=== PATIENT | female | born 1930 | race African-American/Black ===

== ENCOUNTER 2018-08-29 15:23 | Inpatient (IN) | payer MEDICARE, BC ==
[2018-08-29 16:07] LABS: Hemoglobin 9.3 g/dL (12.0-16.0); Mean Corpuscular HGB CONC 31.7 g/dL (32.0-36.0); Mean Corpuscular Volume 82.1 fL (78.0-98.0); Mean Platelet Volume 9.7 fL (7.4-10.4); Platelet Count 239 thou/uL (130-400); RBC Distribution Width 16.4 % (11.5-14.5); Red Blood Cell (RBC) Count 3.56 mill/uL (4.20-5.40); White Blood Cell (WBC) Count 10.1 thou/uL (4.8-10.8)
--- NOTE | 2018-08-29 16:13 | RAD ---
FRONTAL VIEW CHEST: Date: 08/29/18 INDICATION: Chest pain. COMPARISON: 12/02/14. FINDINGS: Cardiac silhouette is prominent, stable. No lobar consolidation, effusion, or discrete pneumothorax. IMPRESSION: 1. No focal consolidation. 2. Stable prominence of cardiac silhouette. POS: TPC
[2018-08-29 16:27] LABS: ALT (SGPT) 52 U/L (8-55); AST (SGOT) 60 U/L (5-34); Albumin 3.8 g/dL (3.4-4.8); Alkaline Phosphatase 112 U/L (40-150); Anion Gap 15 mmol/L (10-20); BUN (Urea Nitrogen) 45 mg/dL (9.8-20.1); Bilirubin, Total 0.2 mg/dL (0.2-1.2); CK (CPK) 1489 U/L (29-168); Calc. Creatinine Clearance 0 mL/min (70-130); Carbon Dioxide 18 mmol/L (23-31); Chloride 107 mmol/L (98-107); Estimated GFR-MDRD 11; Globulin 3.9 g/dL (2.4-3.5); Glucose 99 mg/dL (83-110); Lipase 42 U/L (8-78); Potassium 6.5 mmol/L (3.5-5.1); Protein, Total 7.7 g/dL (6.0-8.3); Sodium 133 mmol/L (136-145)
[2018-08-29 16:36] LABS: Anisocytosis SLIGHT = 6-15 cells (100X) (0-5/hpf); Burr Cells SLIGHT = 2-5 cells (100X) (0-1/hpf); Elliptocytes SLIGHT = 2-5 cells (100X) (0-1/hpf); Eosinophils 2 % (0-10); Hypochromia SLIGHT = 6-15 cells (100X) (0-5/hpf); Lymphocytes 18 % (21-51); MDiff Complete? YES; Monocytes 5 % (0-10); Neutrophil 74 % (42-75); Ovalocytes SLIGHT = 2-5 cells (100X) (0-1/hpf); PLT Morphology Comment Appears Adequate; Poikilocytosis SLIGHT = 6-15 cells (100X) (0-5/hpf); Polychromasia SLIGHT = 2-3 cells (100X) (0-2/hpf); Schistocytes SLIGHT = 2-5 cells (100X) (0-1/hpf); Spherocytes SLIGHT = 1-5 cells (100X) (None Seen)
[2018-08-29] MEDS ORDERED: Insulin Regular 300 UNITS/3 ML VIAL ONE (17:19)
[2018-08-29] MEDS ORDERED: Dextrose 50% Abboject 50 ML SYRINGE ONE (17:19)
[2018-08-29] MEDS ORDERED: Acetaminophen 325 MG TAB PO PRN (18:09)
[2018-08-29] MEDS ORDERED: Senokot S 8.6-50 MG TAB PO PRN (18:09)
[2018-08-29] MEDS ORDERED: Guaifenesin DM 100-10/5 ML UDCUP PO PRN (18:09)
[2018-08-29] MEDS ORDERED: HumaLOG 300 UNITS/3 ML VIAL SC PRN (18:09)
[2018-08-29] MEDS ORDERED: Dextrose 50% Abboject 50 ML SYRINGE SLOW IVP PRN (18:09)
--- NOTE | 2018-08-29 19:52 | HP ---
REASON FOR ADMISSION: Acute kidney injury, hyperkalemia, metabolic acidosis, and 9-pounds weight loss in the last 4 weeks. HISTORY OF PRESENTING ILLNESS: The patient gives history of having loss of appetite from almost a month now. She has been feeling weak. She normally walks with a rolling walker inside the house. She has not been eating or drinking from last 2 days now. The family got concerned and brought her to the emergency room. The patient in fact had seen Dr. Mead in the last 2 to 3 weeks for worsening of her kidney function. Her home health nurse came to check on her yesterday and told her heart rhythm was abnormal and asked them to call Dr. Polanco, who in turn told them to come to the emergency room this morning. She has had a normal colonoscopy done more than 10 years back. No complaints of bleeding per rectum. She has dry cough from her smoking habit. No fever, cough, or expectoration. No complaints of shortness of breath. She lives alone. She has no complaints of bleeding per rectum. No complaints of urinary frequency or urgency. PAST MEDICAL AND SURGICAL HISTORY: History of chronic kidney disease, likely 3, hypertension, diabetes mellitus type 2, dyslipidemia, likely COPD, and hypothyroidism, has had thyroid surgery. CURRENT MEDICATIONS: She takes; 1. Metformin 500 mg p.o. twice daily. 2. Levothyroxine 75 mcg p.o. daily. 3. Ultram p.r.n. for pain. 4. Procardia XL 30 mg p.o. daily. 5. Losartan with hydrochlorothiazide 50/12.5 mg p.o. twice daily. 6. Vitamin D 1000 units p.o. daily. 7. Crestor 40 mg p.o. daily. 8. Omeprazole 20 mg daily. ALLERGIES: NO KNOWN DRUG ALLERGIES. PERSONAL HISTORY: The patient has been a smoker all through her life. She states she has come down to 3 to 4 cigarettes a day. Does not abuse alcohol or drugs. The patient lives by herself and does all her activities of daily living. She ambulates with a rolling walker at home. FAMILY HISTORY: Mother of CVA at the age of 53. Father of massive CVA at the age of 65 years. Code status is full. Power of deputy prosecuting attorney is her 2 daughters, who are at bedside. REVIEW OF SYSTEMS: CONSTITUTIONAL: Negative for weight loss or gain, ability to conduct usual activities. SKIN: Negative for rash, itching. EYES: Negative for double vision, pain. ENT/MOUTH: Negative for nose bleeding, neck stiffness, pain, tenderness. CARDIOVASCULAR: Negative for palpitations, dyspnea on exertion, orthopnea. RESPIRATORY: Negative for shortness of breath, wheezing, cough, hemoptysis, fever or night sweats. GASTROINTESTINAL: Negative for poor appetite, abdominal pain, heartburn, nausea , vomiting, constipation, or diarrhea. GENITOURINARY: Negative for urgency, frequency, dysuria, nocturia. MUSCULOSKELETAL: Negative for pain, swelling. NEUROLOGIC/PSYCHIATRIC: Negative for anxiety, depression. ALLERGY/IMMUNOLOGIC: Negative for skin rash, bleeding tendency. PHYSICAL EXAMINATION: GENERAL: The patient is an 88-year-old female, who is currently not in any acute distress. VITAL SIGNS: Blood pressure 122/56, pulse 68 per minute, respiratory rate 18 per minute, temperature 98 degrees Fahrenheit, and saturating 100% on room air. NECK: There is elevated JVD. HEENT: Eyes, extraocular muscles intact. Pupils are reacting to light. Oral cavity, mucous membranes are moist. No exudates or congestion. CARDIOVASCULAR SYSTEM: S1 and S2 heard. Regular rhythm. murmur+. RESPIRATORY SYSTEM: Air entry 1+ bilateral scattered rhonchi, plus no wheezes or rales. ABDOMEN: Soft. Bowel sounds heard. No tenderness, rigidity, or guarding. EXTREMITIES: Mild peripheral edema. No calf tenderness. VASCULAR SYSTEM: Peripheral pulses 1+ bilateral. No ischemic ulcerations or gangrene. CENTRAL NERVOUS SYSTEM: No gross focal deficits noted. The patient is moving all four extremities. PSYCHIATRIC SYSTEM: The patient's mood is euthymic. No hallucinations or delusions. LABORATORY DATA: EKG done shows sinus rhythm at 69 beats per minute. No signs of LVH. White count of 10, H and H 9 and 29, platelet count 239, MCV is 82, with 74% neutrophils. Potassium 6.5, serum bicarb 18, BUN 45, creatinine 3.9, and sodium 133. AST 60, ALT 52, alkaline phosphatase 112, CK level is 1489. Troponin I 0.02. BNP is 43. Albumin is 3.8, lipase is 42. Chest x-ray done shows no focal consolidation. CLINICAL IMPRESSION AND PLAN: The patient will be admitted to telemetry for acute kidney injury, hyperkalemia, metabolic acidosis, and progressive weakness with loss of appetite and 9 pounds weight loss in the last 4 weeks. The patient will be on D5 water at 100 mL/h. She is getting hyperkalemia cocktail in the ER. She is also getting Kayexalate 1 dose in the ER as well. I have informed Dr. Mead, who will be shortly seeing her. Her metformin, losartan with hydrochlorothiazide will be held for now due to acute kidney injury. She will be on aspirin, D5 water at 100 mL/ h, DuoNeb q.6 hourly p.r.n., Synthroid, Crestor at home dose, small dose of Lopressor at 25 mg twice daily. We will obtain CT chest, abdomen, and pelvis without contrast in way of her heavy smoking habit and progressive weight loss plus the current acute kidney injury. She will be on Accu-Chek with coverage for now. We will obtain renal function panel in the morning. Continue to closely monitor her on telemetry. Job ID: [id number] MTDD
--- NOTE | 2018-08-29 20:01 | ULT ---
ULTRASOUND RETROPERITONEUM COMPLETE: (RENAL) 08/29/18 HISTORY: 88-year-old female with renal failure. FINDINGS: Right kidney is 8.5 x 4.5 x 4 cm. Left kidney is 8.5 x 5.5 x 4.5 cm. There is an approximately 3 x 3 x 2.5 cm cyst at the left renal mid pole spanning the cortex and a portion of the renal sinus. There is no hydronephrosis bilaterally. Urinary bladder volume is approximately 90 mL at the time of this s can. The patient is unable to void. IMPRESSION: 1. No hydronephrosis. 2. Left renal cyst. DIANNA Armstrong POS: ALEX
[2018-08-29] MEDS: Dextrose 5% in Water 1,000 ML IV SCH (20:46)
[2018-08-29] MEDS: Rosuvastatin 20 MG TAB PO SCH (20:53)
[2018-08-29] MEDS: Metoprolol Tartrate 25 MG TAB PO SCH (20:53)
[2018-08-29] MEDS: Terazosin HCl 5 MG CAP PO SCH (20:53)
--- NOTE | 2018-08-29 21:07 | CT ---
CT OF CHEST PERFORMED WITH INTRAVENOUS CONTRAST ENHANCEMENT CT OF ABDOMEN AND PELVIS PERFORMED WITH INTRAVENOUS CONTRAST ENHANCEMENT 08/29/18 HISTORY: Abdominal pain, weight loss. Patient is a heavy smoker, acute renal insufficiency. The lungs show some emphysematous change. There is pleural calcifications within the left chest. Thes e changes are along the left lateral thoracic wall. There is also some pleural based calcifications s een posteriorly within the right lung. The pattern of this is not entirely typical of asbestosis expo sure. There is a right lower lobe noncalcified pulmonary nodule measuring 9 mm in size. It is not as well defined on the coronal imaging. It does warrant followup. It could represent some focus of pneum onitis but should be treated as a possible pulmonary nodule with repeat examination in three months. There is no infiltrative process or pleural effusions identified. There are atherosclerotic changes o f the aorta. There is no significant mediastinal, hilar or axillary adenopathy appreciated on this ex am. CT OF ABDOMEN PERFORMED WITHOUT CONTRAST ENHANCEMENT: The liver and spleen are within normal limits of size. Pancreas and gallbladder regions appear unrema rkable. The right adrenal gland is normal in appearance. There is a predominantly low attenuation lef t adrenal mass. It does have some peripheral calcifications. The central portion of this has CT Houns field unit numbers that are compatible with fat and this probably represents an adenoma. It measures 2.6 cm. right and left kidneys are normal in size. There is some vascular calcifications in the left renal pelvis. The left renal pelvis is also slightly prominent but promptly tapers to a normal calibe r. There is no signs of any obstruction. There is a 2.6 cm hypodense area within the mid pole region of the left kidney most likely a cyst. No significant periaortic or mesenteric adenopathy. There is m arked atherosclerotic changes of the infrarenal aorta and dense calcification at the origin of the ri ght common iliac artery. Also marked calcification within the left common iliac artery. Colonic diverticulosis is noted. This is most pronounced in the sigmoid and descending colon region. No inflammatory process. No significant pelvic lymphadenopathy or mass. Review of osseous structures show arthritic changes of the spine. IMPRESSION: 1. Chronic lung change. 2. Approximately 9 to 10 mm right lower lobe pulmonary nodule. Further work up will be required as discussed above. 3. Pleural based calcifications raising the possibility of asbestosis exposure. Emphysematous heike ng changes are present. 4. Left adrenal nodule, possibly an adenoma. 5. Probable left renal cyst. 6. Colonic diverticulosis. Marked atherosclerotic disease in the infrarenal aorta and origin of both common iliac arteries. POS: ALEX
[2018-08-30 00:08] LABS: ALT (SGPT) 46 U/L (8-55); AST (SGOT) 54 U/L (5-34); Albumin 3.2 g/dL (3.4-4.8); Alkaline Phosphatase 94 U/L (40-150); Anion Gap 15 mmol/L (10-20); BUN (Urea Nitrogen) 40 mg/dL (9.8-20.1); Bilirubin, Total 0.2 mg/dL (0.2-1.2); Calc. Creatinine Clearance 10 mL/min (70-130); Calcium 9.4 mg/dL (7.8-10.44); Carbon Dioxide 17 mmol/L (23-31); Chloride 108 mmol/L (98-107); Estimated GFR-MDRD 14; Globulin 3.3 g/dL (2.4-3.5); Glucose 110 mg/dL (83-110); Protein, Total 6.5 g/dL (6.0-8.3); Sodium 135 mmol/L (136-145)
--- NOTE | 2018-08-30 02:09 | CON ---
DATE OF CONSULTATION: HISTORY OF PRESENT ILLNESS: Ms. Tsai is an 88-year-old black female, who was admitted for palpitations. According to our visiting nurses, she had some palpitations. She was seen today for further evaluation. During the initial evaluation, she was noted to have a worsening renal dysfunction as well as hyperkalemia. Of interest, this patient was [facility], there her creatinine was noted at 2.86. She was instructed to decrease her losartan from one tablet b.i.d. to once a day; however, she did not do this. In addition, she was given nifedipine, but she did not tolerate this medication. For the last two days, according to the patient, she has been having decreased appetite and decreased p.o. intake. She states that the food was tasteless. We are now being consulted for acute kidney injury on top of her chronic renal failure as well as from the hyperkalemia. She was given Kayexalate 30 grams with lactulose, D50 with insulin at the ER for the hyperkalemia. As per report, a 12-lead EKG showed no acute ST-T wave changes or evidence of hyperkalemia or peaked T-waves. REVIEW OF SYSTEMS: Decreased appetite and decreased energy level. No chest pain. No shortness of breath. No nausea. No vomiting. No diarrhea. No constipation. Decreased food taste. No fever or chills. No syncopal episode. No dysuria. No abdominal pain. No chest pain. No diplopia. No sore throat. Occasional joint pains. HOME MEDICATIONS: Included; 1. Omeprazole 20 mg tablet once a day. 2. Rosuvastatin 40 mg tablet at bedtime. 3. Losartan/hydrochlorothiazide - 50/12.5 one tablet b.i.d. 4. Levothyroxine 75 mcg daily. 5. Metformin 500 mg p.o. b.i.d. 6. Tramadol 50 mg p.r.n. 7. Aspirin 325 mg once a day. PAST MEDICAL HISTORY: 1. Chronic renal failure from presumed diabetic nephropathy. 2. Type 2 diabetes mellitus. 3. Hypertension. 4. GERD. 5. DJD. 6. Hyperlipidemia. 7. Hypothyroidism. PAST SURGICAL HISTORY: 1. Status post lung nodule excision - benign. 2. Status post colonoscopy. 3. Status post appendectomy. 4. Status post hysterectomy. SOCIAL HISTORY: The patient lives in [place]. She lives alone. Three children. She is . She still smokes about one pack a day for the last 50 to 60 years. Alcohol, none. No IV drug abuse. No blood transfusion. Sedentary lifestyle. FAMILY HISTORY: No family history of ESRD. ALLERGIES: NONE. IMMUNIZATION: Not up to date. TRAUMA: None. HOSPITALIZATION: Please see past medical history. PHYSICAL EXAMINATION: VITAL SIGNS: Blood pressure is 150/70, heart rate 94. GENERAL: Awake, alert, supine, comfortable, not in distress. SKIN: Adequate turgor. HEENT: She has pinkish conjunctivae, anicteric sclerae. NECK: No neck mass. No carotid bruits. No JVD. CHEST: No deformities. LUNGS: Clear breath sounds. No wheezing. No crackles. HEART: Normal sinus rhythm. No murmurs, gallops, or rubs. ABDOMEN: Globular, soft, nontender. No masses. EXTREMITIES: No edema. No deformities. NEUROLOGICAL: Moving all extremities. No tremors or asterixis. No ataxia. LABORATORY DATA: Laboratories of August 29, 2018: Sodium 133, potassium 6.5, chloride 107, carbon dioxide 18, BUN 45, creatinine 3.97. AST 60, ALT 52. Troponin I 0.022. Albumin 3.8, lipase 42. White count 10.1, hemoglobin 9.3. Laboratories of June 08, 2018: BUN was 37, creatinine 2.86. Urinalysis showed protein of 100, rbc's 4 to 6, wbc's 4 to 6. Chest x-ray, no infiltrates. ASSESSMENT AND PLAN: 1. Acute kidney injury on top of her chronic renal failure - this patient most likely has underlying diabetic nephropathy. The worsening renal dysfunction may be a reflection of a prerenal azotemia. Please note, she has decreased p.o. intake for the last two days. In addition, she was taking losartan with hydrochlorothiazide. Our plan is to discontinue the losartan. Start normal saline at 125 mL/hour. 2. Hyperkalemia - Kayexalate 30 g with lactulose as well as D50 with insulin was given. We will be repeating a BMP from today. Adjust medications as needed. 3. Hypertension. I would probably add another type of blood pressure medication with this patient. Consider adding metoprolol for this patient, 25 mg tablet b.i.d. I do not feel that there is any acute indication for a dialytic intervention at the present time. We will lower her hyperkalemia with medications. Thank you for the consult. We will continue to follow. Consider doing renal ultrasound with this patient. Job ID: [id number] MTDD
[2018-08-30] MEDS: Dextrose 5% in Water 1,000 ML IV SCH (05:20)
[2018-08-30] MEDS: Levothyroxine Sodium 75 MCG TAB PO SCH (05:21)
[2018-08-30 05:31] LABS: #Basophils 0.1 thou/uL (0.0-0.2); #Eosinphils 0.1 thou/uL (0.0-0.7); #Lymphocytes 2.9 thou/uL (1.20-3.40); #Neutrophils 4.9 thou/uL (1.40-6.50); %Basophils 0.7 % (0.0-1.0); %Eosinophils 1.4 % (0.0-10.0); %Lymphocytes 32.2 % (21.0-51.0); %Monocytes 11.3 % (0.0-10.0); %Neutrophils 54.5 % (42.0-75.0); Hemoglobin 8.1 g/dL (12.0-16.0); Mean Corpuscular Hemoglobin 25.2 pg (27.0-31.0); Mean Corpuscular Volume 81.5 fL (78.0-98.0); Mean Platelet Volume 11.3 fL (7.4-10.4); Platelet Count 152 thou/uL (130-400); RBC Distribution Width 16.4 % (11.5-14.5); Red Blood Cell (RBC) Count 3.22 mill/uL (4.20-5.40); White Blood Cell (WBC) Count 9.1 thou/uL (4.8-10.8)
[2018-08-30 05:48] LABS: Albumin 3.2 g/dL (3.4-4.8); Anion Gap 13 mmol/L (10-20); BUN (Urea Nitrogen) 36 mg/dL (9.8-20.1); Calc. Creatinine Clearance 11 mL/min (70-130); Calcium 9.2 mg/dL (7.8-10.44); Carbon Dioxide 17 mmol/L (23-31); Chloride 107 mmol/L (98-107); Estimated GFR-MDRD 15; Glucose 84 mg/dL (83-110); Phosphorus 3.1 mg/dL (2.3-4.7); Potassium 4.6 mmol/L (3.5-5.1); Sodium 132 mmol/L (136-145)
[2018-08-30] MEDS: Famotidine 20 MG TAB PO SCH (08:54)
[2018-08-30] MEDS: Metoprolol Tartrate 25 MG TAB PO SCH ×2 (08:54→20:01)
[2018-08-30] MEDS: Enoxaparin Sodium 30 MG/0.3 ML SYRINGE SC SCH (08:54)
[2018-08-30] MEDS ORDERED: Epoetin (ESRD) 20,000 UNITS/ML SC SCH (10:00)
[2018-08-30] MEDS: Albumin 25% 25 GM/100 ML BOT IVPB SCH ×3 (10:18→22:58)
[2018-08-30] MEDS: Sodium Chloride 0.9% 1,000 ML IV SCH ×2 (10:18→20:03)
--- NOTE | 2018-08-30 10:52 | PRG ---
DATE OF SERVICE: 08/30/2018 SERVICE: Renal Medicine. SUBJECTIVE: Ms. Tsai is an 88-year-old black female, who was seen for her acute kidney injury on top of her chronic renal failure. She was also noted to be hyperkalemic. She was treated for the high potassium. She was also given volume repletion. In addition, her losartan has been discontinued. This morning, she is feeling better. She denies any chest pain or shortness of breath. OBJECTIVE: VITAL SIGNS: Blood pressure 104/51, heart rate 64, respiratory rate 14, temperature 99, and pulse ox 98%. GENERAL: Awake, alert, sitting comfortable, and not in distress. SKIN: Adequate turgor. HEENT: Pale conjunctivae. Anicteric sclerae. NECK: No neck mass. No carotid bruits. No JVD. CHEST: No deformities. LUNGS: Clear breath sounds. No wheezing. No crackles. HEART: Normal sinus rhythm. No murmurs. No gallops. No rubs. ABDOMEN: Globular, soft, and nontender. EXTREMITIES: No edema. MEDICATIONS: Medications of August 30, 2018, was reviewed. LABORATORY DATA: Laboratories of August 30, 2018, white count 9.1 and hemoglobin 8.1. Sodium 132, potassium 4.6, chloride 107, carbon dioxide 17, BUN 36, and creatinine 3.43. GFR 15 mL/minute. Glucose 84, calcium 9.2, phosphorus 3.1, and albumin 3.2. DIAGNOSTIC STUDIES: On August 29, 2018, CT scan of the chest and abdomen shows chronic lung changes. There is a left adrenal nodule, possibly an adenoma. No evidence of obstruction. Renal ultrasound done on August 29, 2018, shows no hydronephrosis, left renal cyst. ASSESSMENT AND PLAN: 1. Acute kidney injury - has superimposed prerenal azotemia on top of underlying chronic renal failure. Continue current IV hydration. Change D5 water to normal saline. In addition, I have started her on albumin infusion. There is no indication for any dialytic intervention. 2. Chronic renal failure secondary to diabetic nephropathy. 3. Anemia: I have started the patient on Epogen and iron supplementation. We will re-check baseline CBC in a.m. No indication for any dialysis. Job ID: [id number]
[2018-08-30] MEDS: HumaLOG 300 UNITS/3 ML VIAL SC PRN (11:58)
[2018-08-30 15:06] VITALS: BMI 22.8
--- NOTE | 2018-08-30 15:28 | PDOC.PN ---
- Subjective Encounter Start Date: 08/30/18 Encounter Start Time: 15:26 Subjective: feels much better. no more malaise.denies nay CP/SOB -: care discussed w daughter at bedside. reports that pt smokes too much - Objective Resuscitation Status - Order Detail: 08/29/18 18:03 Resuscitation Status Routine Resuscitation Status: FULL: Full Resuscitation MAR Reviewed: Yes Vital Signs & Weight: Vital Signs (12 hours) Temp Pulse Pulse Pulse Pulse Resp BP 08/30/18 12:04 98.1 F 53 L 18 08/30/18 09:46 55 L 61 55 L 115/52 L 08/30/18 08:00 08/30/18 07:27 99.0 F 64 14 08/30/18 04:00 99.1 F 69 18 BP BP BP Pulse Ox 08/30/18 12:04 120/53 L 98 08/30/18 09:46 130/57 L 118/53 L 08/30/18 08:00 98 08/30/18 07:27 104/51 L 98 08/30/18 04:00 118/59 L 100 Weight Admit Weight 133 lb 3.2 oz Weight 133 lb 3.2 oz I&O: 08/29/18 08/30/18 08/31/18 06:59 06:59 06:59 Intake Total 970 Balance 970 Result Diagrams: 08/30/18 05:00 08/30/18 05:00 Additional Labs: Accuchecks 08/30/18 08/30/18 08/29/18 10:33 05:39 20:36 POC Glucose 207 H 87 78 08/29/18 08/29/18 18:39 17:23 POC Glucose 122 H 87 Radiology Reviewed by me: Yes (CT Chest-Small Solitary pulm nodule RLL 10mm) Phys Exam - Physical Examination Constitutional: NAD HEENT: PERRLA, moist MMs, sclera anicteric, oral pharynx no lesions Neck: no nodes, no JVD, supple, full ROM Respiratory: no wheezing, no rales, no rhonchi, clear to auscultation bilateral Cardiovascular: RRR, no significant murmur, no rub Gastrointestinal: soft, non-tender, no distention, positive bowel sounds Musculoskeletal: no edema, pulses present Neurological: non-focal, normal sensation, moves all 4 limbs Psychiatric: normal affect, A&O x 3 Skin: no rash Dx/Plan (1) BABATUNDE (acute kidney injury) Code(s): N17.9 - ACUTE KIDNEY FAILURE, UNSPECIFIED Status: Acute (2) Hyperkalemia Code(s): E87.5 - HYPERKALEMIA Status: Acute (3) Metabolic acidosis Code(s): E87.2 - ACIDOSIS Status: Acute (4) Tobacco abuse Code(s): Z72.0 - TOBACCO USE Status: Acute (5) CKD (chronic kidney disease) Code(s): N18.9 - CHRONIC KIDNEY DISEASE, UNSPECIFIED Status: Acute (6) DM2 (diabetes mellitus, type 2) Status: Chronic (7) HTN (hypertension) Code(s): I10 - ESSENTIAL (PRIMARY) HYPERTENSION Status: Chronic (8) Hypochromic microcytic anemia Code(s): D50.9 - IRON DEFICIENCY ANEMIA, UNSPECIFIED Status: Chronic Comment : Likley due to ACD.On Epogen (9) Lung nodule seen on imaging study Code(s): R91.1 - SOLITARY PULMONARY NODULE Status: Chronic (10) Failure to thrive in adult Status: Chronic - Plan plan discussed w/ family, PT/OT, out of bed/ambulate, DVT proph w/lovenox, DVT proph w/SCDs Renal Fx and Cr have much improved -: cont IVF.change to NS from D5W to prevent hyponatremia.monitor w am labs -: Strict Tobacco cessation advised. Add nicotine patch -: CT results discussed .OP f/u CT in 3 months. -: Cont Feso4,Epogen.AM labs * . Review of Systems - Review of Systems Constitutional: weakness. negative: fever, chills, sweats, malaise, other Respiratory: negative: Cough, Dry, Shortness of Breath, Hemoptysis, SOB with Excertion, Pleuritic Pain, Sputum, Wheezing Cardiovascular: negative: chest pain, palpitations, orthopnea, paroxysmal nocturnal dyspnea, edema, light headedness, other Gastrointestinal: negative: Nausea, Vomiting, Abdominal Pain, Diarrhea, Constipation, Melena, Hematochezia, Other Genitourinary: negative: Dysuria, Frequency, Incontinence, Hematuria, Retention , Other Musculoskeletal: negative: Neck Pain, Shoulder Pain, Arm Pain, Back Pain, Hand Pain, Leg Pain, Foot Pain, Other Neurological: negative: Weakness, Numbness, Incoordination, Change in Speech, Confusion, Seizures, Other - Medications/Allergies Allergies/Adverse Reactions: Allergies Allergy/AdvReac Type Severity Reaction Status Date / Time No Known Allergies Allergy Verified 08/29/18 22:37 Medications: Current Medications Acetaminophen (Tylenol) 650 mg PO Q4H PRN PRN Reason: Headache/Fever/Mild Pain (1-3) Albumin Human (Albumin 25%) 25 gm IVPB Q6H [facility] Stop: 09/01/18 04:01 Last Admin: 08/30/18 10:18 Dose: 25 gm Albuterol/Ipratropium (Duoneb) 3 ml NEB Q2VW-MF PRN PRN Reason: SOB &/or Wheezing Aspirin (Aspirin Chewable) 81 mg PO DAILY [facility] Last Admin: 08/30/18 08:54 Dose: 81 mg Dextrose/Water (Dextrose 50%) 25 gm SLOW IVP PRN PRN PRN Reason: Hypoglycemia Enoxaparin Sodium (Lovenox) 30 mg SC 0900 [facility] Last Admin: 08/30/18 08:54 Dose: 30 mg Epoetin Taiwo (Procrit) 7,500 units SC Q7D@1000 [facility] Last Admin: 08/30/18 12:27 Dose: 7,500 units Famotidine (Pepcid) 20 mg PO DAILY [facility] Last Admin: 08/30/18 08:54 Dose: 20 mg Ferrous Sulfate (Feosol) 325 mg PO BID-[facility] Glucagon (Glucagon) 1 mg IM PRN PRN PRN Reason: Hypoglycemia Guaifenesin/Dextromethorphan (Robitussin Dm) 15 ml PO Q4H PRN PRN Reason: Cough Sodium Chloride (Normal Saline 0.9%) 1,000 mls @ 75 mls/hr IV .[id number] [facility] Last Admin: 08/30/18 10:18 Dose: 1,000 mls Insulin Human Lispro (Humalog) 0 units SC .MODERATE SLIDING SC PRN PRN Reason: Moderate Correctional Scale Last Admin: 08/30/18 11:58 Dose: 4 unit Insulin Human Lispro (Humalog) 0 units SC .BEDTIME SLIDING SC PRN PRN Reason: Bedtime Correctional Scale Levothyroxine Sodium (Synthroid) 75 mcg PO 0600 [facility] Last Admin: 08/30/18 05:21 Dose: 75 mcg Metoprolol Tartrate (Lopressor) 25 mg PO BID [facility] Last Admin: 08/30/18 08:54 Dose: 25 mg Nicotine (Nicoderm Patch) 21 mg TD DAILY [facility] Rosuvastatin Calcium (Crestor) 40 mg PO [facility] Last Admin: 08/29/18 20:53 Dose: 40 mg Senna/Docusate Sodium (Senokot S) 2 tab PO BIDPRN PRN PRN Reason: Constipation Terazosin HCl (Hytrin) 5 mg PO [facility] Last Admin: 08/29/18 20:53 Dose: 5 mg
[2018-08-30] MEDS: Ferrous Sulfate 325 MG TAB PO SCH (17:19)
[2018-08-30] MEDS: Rosuvastatin 20 MG TAB PO SCH (20:02)
[2018-08-30] MEDS: Terazosin HCl 5 MG CAP PO SCH (20:02)
[2018-08-30 20:30] LABS: Bilirubin Negative (Negative); Blood, Urine Moderate (Negative); Clarity CLEAR (Clear); Glucose, Urine (Dipstick) Negative (Negative); Leukocyte Negative (Negative); Nitrite Negative (Negative); Protein, Urine (Dipstick) 30 mg/dL (Neg-Trace); Specific Gravity, Urine 1.005 (1.002-1.036); Urobilinogen 0.2 mg/dL (0.2-1.0); pH, Urine 7.5 (5.0-9.0)
[2018-08-30 20:31] LABS: Bacteria/HPF None Seen HPF (None Seen); Hyaline Casts/LPF 0-3 HYALINE CAST LPF (0-3 Hyaline); Pathc Cast-AUWi Flag 0.29 (0-2.49); Squamous Epithelial 0-3 HPF (0-3); WBC/HPF 0-3 HPF (0-3)
[2018-08-30 20:32] LABS: Yeast-AUWi Flag 35.4 (0-25.0)
[2018-08-30 20:41] LABS: Yeast-All Forms None Seen HPF (None Seen)
[2018-08-31] MEDS: Albumin 25% 25 GM/100 ML BOT IVPB SCH ×2 (04:59→10:28)
[2018-08-31] MEDS: Levothyroxine Sodium 75 MCG TAB PO SCH (04:59)
[2018-08-31 06:39] LABS: Anion Gap 13 mmol/L (10-20); BUN (Urea Nitrogen) 31 mg/dL (9.8-20.1); Calc. Creatinine Clearance 13 mL/min (70-130); Calcium 9.1 mg/dL (7.8-10.44); Carbon Dioxide 19 mmol/L (23-31); Chloride 109 mmol/L (98-107); Estimated GFR-MDRD 17; Glucose 86 mg/dL (83-110); Potassium 3.9 mmol/L (3.5-5.1); Sodium 137 mmol/L (136-145)
[2018-08-31 06:52] LABS: #Eosinphils 0.1 thou/uL (0.0-0.7); #Lymphocytes 2.3 thou/uL (1.20-3.40); #Monocytes 0.7 thou/uL (0.11-0.59); #Neutrophils 3.2 thou/uL (1.40-6.50); %Basophils 0.5 % (0.0-1.0); %Eosinophils 1.2 % (0.0-10.0); %Lymphocytes 36.7 % (21.0-51.0); %Monocytes 10.3 % (0.0-10.0); %Neutrophils 51.2 % (42.0-75.0); Hemoglobin 6.7 g/dL (12.0-16.0); Mean Corpuscular HGB CONC 30.2 g/dL (32.0-36.0); Mean Corpuscular Hemoglobin 24.7 pg (27.0-31.0); Mean Corpuscular Volume 81.9 fL (78.0-98.0); Mean Platelet Volume 10.1 fL (7.4-10.4); Platelet Count 172 thou/uL (130-400); RBC Distribution Width 16.1 % (11.5-14.5); Red Blood Cell (RBC) Count 2.72 mill/uL (4.20-5.40); White Blood Cell (WBC) Count 6.2 thou/uL (4.8-10.8)
[2018-08-31] MEDS: Famotidine 20 MG TAB PO SCH (08:52)
[2018-08-31] MEDS: Ferrous Sulfate 325 MG TAB PO SCH (08:52)
[2018-08-31] MEDS: Metoprolol Tartrate 25 MG TAB PO SCH (08:53)
[2018-08-31] MEDS: Enoxaparin Sodium 30 MG/0.3 ML SYRINGE SC SCH (08:53)
[2018-08-31] MEDS ORDERED: Nicotine 21 MG PATCH TD SCH (09:00)
--- NOTE | 2018-08-31 11:23 | PRG ---
DATE OF SERVICE: 08/31/2018 RENAL MEDICINE SUBJECTIVE: Ms. Tsai is an 88-year-old black female, who was seen for an acute kidney injury as well as hyperkalemia. She was taking some nephrotoxic drugs at that time, this was discontinued. She is receiving IV hydration with slow improvement in the renal function and also new blood pressure medication has been started. No new complaints today. OBJECTIVE: VITAL SIGNS: Blood pressure 119/70, heart rate 82, respiratory rate 16, temperature 98.8, and pulse ox 95% on room air. GENERAL: Awake, alert, and comfortable, not in distress. SKIN: Adequate turgor. HEENT: Pale conjunctivae. Anicteric sclerae. NECK: No neck mass. No carotid bruits. No JVD. CHEST: No deformities. LUNGS: Clear breath sounds. No wheezing. No crackles. HEART: Normal sinus rhythm. No murmurs. No gallops. No rubs. ABDOMEN: Globular, soft, and nontender. No masses. EXTREMITIES: No edema. No deformities. MEDICATIONS: Medications of August 31, 2018, reviewed. LABORATORY DATA: Laboratories of August 31, 2018, white count 6.2 and hemoglobin 6.7. Sodium 137, potassium 3.9, chloride 109, carbon dioxide 19, BUN 31, creatinine 3.07, glucose 86, and calcium 9.1. ASSESSMENT AND PLAN: 1. Acute kidney injury on top of chronic renal failure, slowly improving renal function. Continue IV hydration with this patient. Most recent creatinine now is noted at 3.07 and this was said to have peaked at a value of 3.72. Currently, she is at stage 4 chronic renal failure. No indication for any dialytic intervention. 2. Chronic renal failure - with the previous proteinuria, consider hypertensive nephropathy. Again, she is at stage 4 chronic renal failure. 3. Anemia. We will transfuse 1 unit of packed red blood cells. She is currently on Epogen, iron supplementation. 4. Labile hypertension, much improved. I have decided to discontinue terazosin until that her blood pressure run a little higher. She is at times running below 100 systolic. Recheck basic metabolic and CBC in a.m. Job ID: [id number]
[2018-08-31] MEDS: Sodium Chloride 0.9% 1,000 ML IV SCH (12:21)
[2018-08-31] MEDS: HumaLOG 300 UNITS/3 ML VIAL SC PRN (13:06)
[2018-08-31 15:33] VITALS: TEMP 98.2
[2018-08-31] MEDS ORDERED: Albumin 25% 25 GM/100 ML BOT IVPB SCH (16:00)
[2018-08-31 16:58] VITALS: BP 116/65
--- NOTE | 2018-09-01 13:52 | DIS ---
DATE OF ADMISSION: 08/29/2018 DATE OF DISCHARGE: 08/31/2018 CONDITION AT THE TIME OF DISCHARGE: Stable and improved. DISCHARGE DISPOSITION: Home with Home Health. PRIMARY CARE PHYSICIAN: Raul Polanco MD PRIMARY BIAS CUTTING MACHINE OPERATOR VERTICAL: Dr. Mead. DISCHARGE DIAGNOSES: 1. Acute renal insufficiency. 2. Hyperkalemia. 3. Metabolic acidosis. 4. Tobacco abuse. 5. Chronic kidney disease. 6. Diabetes mellitus type 2. 7. Hypertension. 8. Hypochromic microcytic anemia due to anemia of chronic kidney disease. 9. Solitary lung nodule seen on imaging study. 10. Failure to thrive. DISCHARGE MEDICATIONS: 1. Levothyroxine 75 mcg daily. 2. Omeprazole 20 mg daily. 3. Nifedipine 30 mg daily. 4. Rosuvastatin 40 mg daily. 5. Tramadol p.r.n. 6. Cholecalciferol daily. New medications; 1. Januvia 50 mg daily. 2. Lopressor 25 mg p.o. b.i.d. 3. Ferrous sulfate 325 mg p.o. b.i.d. Please note that the patient has been taken off losartan, hydrochlorothiazide, and metformin. PROCEDURES DURING IN THE HOSPITAL: 1. Renal ultrasound which is unremarkable. 2. CT scan of the chest, abdomen, and pelvis, which showed incidental finding of 9 to 10 mm right lower lobe pulmonary nodule. HISTORY OF PRESENTING ILLNESS: Ms. Charu Tsai is an 88-year-old pleasant female with known history of chronic kidney disease, who presented to the emergency room with failure to thrive, weight loss, and was found to have acute kidney injury and hyperkalemia. She has been on lisinopril-hydrochlorothiazide as well as metformin at home. She was started on IV fluids and these medications were held and Nephrology was consulted. CT scan of the abdomen and pelvis was done because of the finding of weight loss. Please see admission history and physical for further details. HOSPITAL COURSE: The patient did very well with quick improvement in her numbers. Her diabetic medication was changed to Januvia. Her blood pressure medication was changed to metformin. She did receive 1 unit of packed RBC for low hemoglobin and was started on ferrous sulfate and Epogen. Dr. Mead saw the patient and as of this morning, her numbers are back to normal and she will be released home, as she is eager to go home. Discharge plan was discussed with both of her daughters present in the room and with the patient who verbalized understanding. She has home health already set up at home and we will resume that. The patient smokes, but despite multiple attempts, I could not convince her to stop smoking. She said that she will try to cut down. For this reason, nicotine patch was not provided. She was noted to have a solitary pulmonary nodule less than 10 mm in size and for which I have updated the family to get a repeat CT scan done in about 3 to 6 months with primary care physician. She was seen and examined this morning and is in good spirits and ready to go home. PHYSICAL EXAMINATION: VITAL SIGNS: This morning, temperature 98.4, pulse of 82, respirations 20, saturating 98% on room air, and blood pressure 125/51. GENERAL: In no acute distress. Awake, alert, and oriented x3. CHEST: Clear to auscultation bilaterally. HEART: Rate rhythm is regular. LABORATORY DATA: Discharge creatinine 3.07, which was 3.97 upon presentation and discharge potassium is 3.9, which was 6.5 upon presentation. Blood sugar 159. TIME SPENT: Total time spent in the discharge 40 minutes, including discussion with both the family members, the patient, and vending machine filler. Job ID: [id number]
--- NOTE | 2018-09-02 12:27 | EKG ---
Test Reason : Blood Pressure : / mmHG Vent. Rate : 069 BPM Atrial Rate : 069 BPM P-R Int : 128 ms QRS Dur : 080 ms QT Int : 366 ms P-R-T Axes : 000 -40 090 degrees QTc Int : 392 ms Sinus rhythm with Premature atrial complexes Left axis deviation Left ventricular hypertrophy with repolarization abnormality Abnormal ECG Confirmed by CASSANDRA CERNA ([id number]), rewrite editor HARVEY ROBERTS ([id number]) on 09/02/2018 12:27:32 PM Referred By: Confirmed By:CASSANDRA CERNA
== END 2018-08-31 17:33 | disposition home or self-care (01) | DRG 683 ==
LOC: ERS 15:23 → 2NO 19:56 → SURG A 08-30 19:28
PROVIDERS: ADMIT Internal Medicine; ATTEND Internal Medicine
PROC: 30233N1 Transfusion of Nonautologous Red Blood Cells into Peripheral Vein, Percutaneous Approach (ICD-10-PCS; principal; 2018-08-31)
DX: N17.9 Acute kidney failure, unspecified (principal); E87.2 Acidosis; E87.5 Hyperkalemia; N18.3 Chronic kidney disease, stage 3 (moderate); R62.7 Adult failure to thrive; E11.22 Type 2 diabetes mellitus with diabetic chronic kidney disease; E78.5 Hyperlipidemia, unspecified; J44.9 Chronic obstructive pulmonary disease, unspecified; E03.9 Hypothyroidism, unspecified; Z79.84 Long term (current) use of oral hypoglycemic drugs; Z79.899 Other long term (current) drug therapy; Z79.891 Long term (current) use of opiate analgesic; F17.210 Nicotine dependence, cigarettes, uncomplicated; I12.9 Hypertensive chronic kidney disease with stage 1 through stage 4 chronic kidney disease, or unspecified chronic kidney disease; E11.21 Type 2 diabetes mellitus with diabetic nephropathy; R00.2 Palpitations; K21.9 Gastro-esophageal reflux disease without esophagitis; R91.1 Solitary pulmonary nodule; D50.9 Iron deficiency anemia, unspecified
CPT/HCPCS: 36415; 36416; 36430; 71045; 71250; 74177; 76770; 80048; 80053; 80069; 81003; 81015; 82550; 83690; 83880; 84484; 85025; 86850; 86900; 86901; 93005; 94760; 96361; 96374; 96375; G8978-GP-CJ; G8979-GP-CI; G8987-GO-CJ; G8988-GO-CI; J1650; J1815; P9016; P9047; Q4081